=== PATIENT | male | born 1945 | race Caucasian/White ===

== ENCOUNTER 2018-05-15 21:09 | Emergency (ER) | payer OTHER ==
[2018-05-15] MEDS ORDERED: LIDOCAINE 1% MPF 5 ML VIAL ONE (23:10)
--- NOTE | 2018-05-15 23:28 | EDPHYS ---
Physician Documentation [facility] Name: Erwin Mcneill Age: 72 yrs Sex: Male : 1945 Arrival Date: 05/15/2018 Time: 21:10 Bed 24 Private MD: ED Physician Amilcar Mckeon HPI: 05/15 22:25 This 72 yrs old Male presents to ER via Ambulatory with complaints of pkl Laceration - Face. 22:25 The patient or guardian reports a laceration, 1.5 cm(s). The complaints affect the pkl nose. Context of injury: resulted from a fall, from a standing position. Onset: The symptoms/episode began/occurred just prior to arrival. Associated signs and symptoms: The patient has no apparent associated signs or symptoms, Loss of consciousness: This patient did not experience any loss of consciousness. Historical: - Allergies: 21:23 No Known Allergies; aj1 - Home Meds: 21:23 pravastatin 20 mg oral tab 1 tab once daily [Active]; propranolol 20 mg Oral tab 1 tab aj1 twice daily [Active]; levothyroxine 75 mcg tab 1 tab once daily [Active]; lisinopril-hydrochlorothiazide 20-12.5 mg oral tab 1 tab once daily [Active]; finasteride 5 mg oral tab 1 tab once daily for Symptomatic Benign Prostatic Hyperplasia [Active]; - PMHx: 21:23 Hypertension; Hyperlipidemia; BPH; aj1 - Immunization history:: Last tetanus immunization: < 5 years ago Flu vaccine is up to date. - Social history:: Smoking status: Patient/guardian denies using tobacco. - Ebola Screening: : Patient denies travel to an Ebola-affected area in the 21 days before illness onset. ROS: 22:25 Eyes: Negative for injury, pain, redness, and discharge. pkl 22:25 ENT: Positive for injury or acute deformity, laceration, of the nose. 22:25 Neck: Negative for pain at rest, stiffness. 22:25 Cardiovascular: Negative for chest pain. 22:25 Respiratory: Negative for cough, shortness of breath. 22:25 Abdomen/GI: Negative for abdominal pain, nausea, vomiting, and diarrhea. 22:25 Back: Negative for acute changes. 22:25 : Negative for urinary symptoms. 22:25 MS/extremity: Negative for acute changes. 22:25 Skin: Negative for rash. 22:25 Neuro: Negative for altered mental status, loss of consciousness. Exam: 22:25 Eyes: Pupils equal round and reactive to light, extra-ocular motions intact. Lids and pkl lashes normal. Conjunctiva and sclera are non-icteric and not injected. Cornea within normal limits. Periorbital areas with no swelling, redness, or edema. 22:25 Head/face: Noted is abrasion(s), that are mild, of the upper lip, hematoma, that is mild, of the forehead. 22:25 ENT: Nose: laceration, that is linear, approximately 1.5 cm(s), bridge of nose. 22:25 Neck: Exam negative for nuchal rigidity. 22:25 Chest/axilla: Exam negative for acute changes. 22:25 Cardiovascular: Rate: normal, Rhythm: regular. 22:25 Respiratory: the patient does not display signs of respiratory distress, Respirations: normal, Breath sounds: are clear throughout. 22:25 Abdomen/GI: Bowel sounds: normal, Palpation: abdomen is soft and non-tender, in all quadrants. 22:25 Back: Exam negative for acute changes. 22:25 : Exam negative for acute changes. 22:25 Musculoskeletal/extremity: Exam is negative for acute changes. 22:25 Skin: Exam negative for rash. 22:25 Neuro: Orientation: is normal, Mentation: is normal, Cranial nerves: grossly normal, Motor: is normal. Vital Signs: 21:23 BP 186 / 96; Pulse 71; Resp 18; Temp 97.0; Pulse Ox 100% on R/A; Weight 82.55 kg (R); aj1 Height 5 ft. 7 in. (170.18 cm) (R); Pain 3/10; 23:47 BP 165 / 82; Pulse 78; Resp 16; Pulse Ox 100% on R/A; rv 21:23 Body Mass Index 28.50 (82.55 kg, 170.18 cm) aj1 [place] Coma Score: 22:25 Eye Response: spontaneous(4). Verbal Response: oriented(5). Motor Response: obeys pkl commands(6). Total: 15. Laceration: 23:23 Wound Repair of 1.5cm ( 0.6in ) subcutaneous laceration to nose. Minimal bleeding pkl noted.. Distal neuro/vascular/tendon intact. Anesthesia: Local anesthetic administered with 2 mls of 1% lidocaine. Wound prep: Extensive cleansing by me. Skin closed with 3 6-0 Prolene using simple sutures and sterile technique. Dressed with Neosporin. Patient tolerated well. MDM: 22:17 Patient medically screened. pkl 23:23 Data reviewed: vital signs, nurses notes, radiologic studies, CT scan. pkl 05/15 22:23 Order name: CT Head Brain wo Cont pkl Administered Medications: 21:40 Drug: Augmentin 875 mg Route: PO; rv 23:47 Follow up: Response: Medication administered at discharge. rv Disposition: 05/15/18 23:27 Discharged to Home. Impression: Head injury. Hematoma forehead. Laceration nose. Fracture nasal bone. - Condition is Stable. - Prescriptions for Augmentin 875- 125 mg Oral Tablet - take 1 tablet by ORAL route every 12 hours for 10 days; 20 tablet. - Medication Reconciliation Form, Thank You Letter, Antibiotic Education, Prescription Opioid Use form. - Follow up: Private Physician; When: 5 - 6 days; Reason: Wound Recheck, Staple/Suture removal, Re-evaluation by your physician. Signatures: Dispatcher [employer] EDMS Chana Cao RN RN aj1 Amilcar Mckeon MD MD pkl Allen Barajas RN RN rv Corrections: (The following items were deleted from the chart) 23:50 23:27 05/15/2018 23:27 Discharged to Home. Impression: Head injury. Hematoma forehead. rv Laceration nose. Fracture nasal bone. Condition is Stable. Forms are Medication Reconciliation Form, Thank You Letter, Antibiotic Education, Prescription Opioid Use. Follow up: Private Physician; When: 5 - 6 days; Reason: Wound Recheck, Staple/Suture removal, Re-evaluation by your physician. pkl
--- NOTE | 2018-05-15 23:28 | ER ---
Nurse's Notes [facility] Name: Erwin Mcneill Age: 72 yrs Sex: Male : 1945 Arrival Date: 05/15/2018 Time: 21:10 Bed 24 Private MD: Diagnosis: Head injury. Hematoma forehead. Laceration nose. Fracture nasal bone Presentation: 05/15 21:18 Presenting complaint: Patient states: "I tripped. My dog got in between me and where I aj1 was going and I tripped and my face was the first thing that hit the concrete." Denies LOC, vomiting. Patient states that he does not take any blood thinners. Hematoma noted to forehead. Laceration noted to bridge of nose. Abrasion noted to forehead. Abrasion noted to upper lip. Patient states that he had a nose bleed but that has now resolved. Transition of care: patient was not received from another setting of care. Complicating Factors: There are no complicating factors for this patient. Onset of symptoms was May 15, 2018 at 21:00. Risk Assessment: Do you want to hurt yourself or someone else? Patient reports no desire to harm self or others. Initial Sepsis Screen: Does the patient meet any 2 criteria? No. Patient's initial sepsis screen is negative. Does the patient have a suspected source of infection? No. Patient's initial sepsis screen is negative. Care prior to arrival: None. 21:18 Method Of Arrival: Ambulatory aj1 21:18 Acuity: WOLF 3 aj1 Triage Assessment: 21:23 General: Appears in no apparent distress. uncomfortable, Behavior is calm, cooperative, aj1 appropriate for age. Pain: Complains of pain in face Pain currently is 4 out of 10 on a pain scale. Neuro: Level of Consciousness is awake, alert, obeys commands, Oriented to person, place, time, situation, Gait is steady, Speech is normal. Cardiovascular: Patient's skin is warm and dry. Respiratory: Airway is patent Respiratory effort is even, unlabored, Respiratory pattern is regular, symmetrical. Injury Description: Abrasion sustained to forehead, philtrum and lower lip. Historical: - Allergies: 21:23 No Known Allergies; aj1 - Home Meds: 21:23 pravastatin 20 mg oral tab 1 tab once daily [Active]; propranolol 20 mg Oral tab 1 tab aj1 twice daily [Active]; levothyroxine 75 mcg tab 1 tab once daily [Active]; lisinopril-hydrochlorothiazide 20-12.5 mg oral tab 1 tab once daily [Active]; finasteride 5 mg oral tab 1 tab once daily for Symptomatic Benign Prostatic Hyperplasia [Active]; - PMHx: 21:23 Hypertension; Hyperlipidemia; BPH; aj1 - Immunization history:: Last tetanus immunization: < 5 years ago Flu vaccine is up to date. - Social history:: Smoking status: Patient/guardian denies using tobacco. - Ebola Screening: : Patient denies travel to an Ebola-affected area in the 21 days before illness onset. Screenin:21 Abuse screen: Denies threats or abuse. Denies injuries from another. Nutritional rv screening: No deficits noted. Tuberculosis screening: No symptoms or risk factors identified. Fall Risk None identified. Assessment: 22:20 General: Appears in no apparent distress. uncomfortable, Behavior is calm, cooperative. rv Pain: Complains of pain in forehead and face. Neuro: Level of Consciousness is awake, alert, obeys commands, Oriented to person, place, time, situation. Cardiovascular: Capillary refill < 3 seconds. Respiratory: Airway is patent. GI: No signs and/or symptoms were reported involving the gastrointestinal system. : No signs and/or symptoms were reported regarding the genitourinary system. EENT: No signs and/or symptoms were reported regarding the EENT system. Derm: Wound noted face Wound is LACERATION, ABRASIONS. Musculoskeletal: Reports pain in face. Injury Description: Laceration is clean, 0.5 to 2.5 cm long, bleeding moderately. Vital Signs: 21:23 BP 186 / 96; Pulse 71; Resp 18; Temp 97.0; Pulse Ox 100% on R/A; Weight 82.55 kg (R); aj1 Height 5 ft. 7 in. (170.18 cm) (R); Pain 3/10; 23:47 BP 165 / 82; Pulse 78; Resp 16; Pulse Ox 100% on R/A; rv 21:23 Body Mass Index 28.50 (82.55 kg, 170.18 cm) aj1 [place] Coma Score: 22:25 Eye Response: spontaneous(4). Verbal Response: oriented(5). Motor Response: obeys pkl commands(6). Total: 15. ED Course: 21:10 Patient arrived in ED. ds1 21:20 Triage completed. aj1 21:23 Arm band placed on Patient placed in an exam room. aj1 22:17 Amilcar Mckeon MD is Attending Physician. pkl 22:21 Patient has correct armband on for positive identification. Bed in low position. Call rv light in reach. Side rails up X 1. Adult w/ patient. Pulse ox on. NIBP on. 22:35 CT completed. Patient moved to CT via wheelchair. Patient moved back from CT. cw1 22:42 CT Head Brain wo Cont In Process Unspecified. EDMS 23:48 Patient did not have IV access during this emergency room visit. rv 23:49 Assist provider with laceration repair on head that was 2.5 cm. or less using sutures. rv Set up tray. Performed by Amilcar Mckeon MD Dressed with 4X4s, Patient tolerated well. Administered Medications: 21:40 Drug: Augmentin 875 mg Route: PO; rv 23:47 Follow up: Response: Medication administered at discharge. rv Outcome: 23:27 Discharge ordered by . pkl 23:49 Discharged to home ambulatory. rv 23:49 Condition: good 23:49 Discharge instructions given to patient, Instructed on discharge instructions, follow up and referral plans. medication usage, wound care, Demonstrated understanding of instructions, follow-up care, medications, Prescriptions given X 1. 23:50 Patient left the ED. rv Signatures: Dispatcher [employer] EDMS Chana Cao RN RN aj1 Amilcar Mckeon MD MD pkDulce Jung ds1 Isa Cazares cw1 Allen Barajas RN RN rv Corrections: (The following items were deleted from the chart) 23:49 23:48 No provider procedures requiring assistance completed. rv rv
[2018-05-15] MEDS ORDERED: AMOX/K CLAV 875 MG TAB ONE (23:45)
--- NOTE | 2018-05-16 08:19 | RAD REPORT ---
EXAM DESCRIPTION: CT - Head Brain Wo Cont - 05/16/2018 5:50 am CLINICAL HISTORY: fall Head injury after fall COMPARISON: No comparisons TECHNIQUE: All CT scans are performed using dose optimization technique as appropriate and may inclu de automated exposure control or mA/KV adjustment according to patient size. FINDINGS: No intracranial hemorrhage, hydrocephalus or extra-axial fluid collection.No areas of brai n edema or evidence of midline shift. The paranasal sinuses and mastoids are clear. The calvarium is intact. Small frontal scalp hematoma. Probable minimal nasal bone fracture, age undetermined. IMPRESSION: No acute intracranial abnormality. Mild nasal bone fracture, age undetermined.
== END 2018-05-15 23:50 | disposition home or self-care (01) ==
LOC: ER 21:09
PROC: 0JQ10ZZ Repair Face Subcutaneous Tissue and Fascia, Open Approach (ICD-10-PCS; principal; 2018-05-15)
DX: S01.21XA Laceration without foreign body of nose, initial encounter (principal); S09.90XA Unspecified injury of head, initial encounter; S00.83XA Contusion of other part of head, initial encounter; W19.XXXA Unspecified fall, initial encounter; E78.5 Hyperlipidemia, unspecified; I10 Essential (primary) hypertension; N40.0 Benign prostatic hyperplasia without lower urinary tract symptoms; Z79.899 Other long term (current) drug therapy
CPT/HCPCS: 70450; 99284